=== PATIENT | female | born 1990 | race Caucasian/White ===

== ENCOUNTER 2019-10-10 07:20 | Emergency (ER) | payer BC ==
[~2019-10-10] VITALS: Ht 167.6 cm; Wt 134.0 kg
--- NOTE | 2019-10-10 08:10 | RAD ---
EXAM: AP, lateral and lumbosacral spot views of the lumbar spine DATE: 10/10/2019 7:46 AM INDICATION: LOWER BACK PAIN AFTER LIFTING YESTERDAY COMPARISON: No Prior FINDINGS: 5 nonrib-bearing lumbar-type vertebral bodies. Vertebral body heights are preserved. Straightening of the normal lumbar lordosis. No spondylolisthesis. Disc heights are grossly preserved. IMPRESSION: 1. Negative acute fracture or subluxation. Electronically signed by: Ronny Rojas MD (10/10/2019 8:07 AM) [facility]
[2019-10-10] MEDS ORDERED: KETOROLAC 30 MG/ML VIAL. IVP ONE (08:15)
[2019-10-10] MEDS ORDERED: ORPHENADRINE CITRATE 60 MG/2 ML VIAL. IM ONE (08:15)
--- NOTE | 2019-10-10 08:21 | PHYS DOC ---
Past Medical History Past Medical History: No Pertinent History Additional Past Medical Histor: back pain Past Surgical History: Other Additional Past Surgical Histo: knee surgery Smoking Status: Never Smoker Alcohol Use: Occasionally General Adult EDM: Chief Complaint: BACK PAIN OR INJURY HPI: HPI: Patient is a 28 year old female who presented with lower back pain since yesterday. 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 Patient has lower back problem in the past. She is scheduled to see her Chiropractor this coming Friday. Patient got up this morning, could not get out of her bed because of severe pain, worse with movement. Patient denied any bowel or bladder incontinence. No weakness or numbness in her lower extremities. Review of Systems: Review of Systems: Constitutional: Denies fever or chills. [] Eyes: Denies change in visual acuity. [] HENT: Denies nasal congestion or sore throat. [] Respiratory: Denies cough or shortness of breath. [] Cardiovascular: Denies chest pain or edema. [] GI: Denies abdominal pain, nausea, vomiting, bloody stools or diarrhea. [] : Denies dysuria. [] Musculoskeletal: Positive for lower back pain. Integument: Denies rash. [] Neurologic: Denies headache, focal weakness or sensory changes. [] Endocrine: Denies polyuria or polydipsia. [] Lymphatic: Denies swollen glands. [] Psychiatric: Denies depression or anxiety. [] Heart Score: Risk Factors: Risk Factors: DM, Current or recent (<one month) smoker, HTN, HLP, family history of CAD, obesity. Risk Scores: Score 0 - 3: 2.5% MACE over next 6 weeks - Discharge Home Score 4 - 6: 20.3% MACE over next 6 weeks - Admit for Clinical Observation Score 7 - 10: 72.7% MACE over next 6 weeks - Early Invasive Strategies Current Medications: Current Medications Medications (Trade) Dose Ordered Sig/Nayla Start Time Stop Time Status Last Admin Dose Admin Ketorolac Tromethamine (Toradol 30mg Vial) 30 mg 1X ONCE 10/10/19 08:15 10/10/19 08:16 DC 10/10/19 08:09 30 MG Orphenadrine Citrate (Norflex) 60 mg 1X ONCE 10/10/19 08:15 10/10/19 08:16 DC 10/10/19 08:10 60 MG Allergies: Allergies: Allergies Coded Allergies Type Severity Reaction Last Updated Verified No Known Drug Allergies 10/10/19 No Physical Exam: PE: Constitutional: Well developed, well nourished, no acute distress, non-toxic appearance. [] HENT: Normocephalic, atraumatic, bilateral external ears normal, oropharynx moist, no oral exudates, nose normal. [] Eyes: PERRLA, EOMI, conjunctiva normal, no discharge. [] Neck: Normal range of motion, no tenderness, supple, no stridor. [] Cardiovascular:Heart rate regular rhythm, no murmur [] Lungs & Thorax: Bilateral breath sounds clear to auscultation [] Abdomen: Bowel sounds normal, soft, no tenderness, no masses, no pulsatile masses. [] Skin: Warm, dry, no erythema, no rash. [] Back: There is tenderness to palpation in lumbar area at L2/L3 AREA, NO BONY STEP OFF, NO DEFORMITY NOTED, no CVA tenderness. [] Extremities: No tenderness, no cyanosis, no clubbing, ROM intact, no edema. [] Neurologic: Alert and oriented X 3, normal motor function, normal sensory function, no focal deficits noted. [] Psychologic: Affect normal, judgement normal, mood normal. [] Current Patient Data: Vital Signs: Vital Signs Date Time Temp Pulse Resp B/P (MAP) Pulse Ox O2 Delivery O2 Flow Rate FiO2 10/10/19 07:20 98.4 74 16 129/76 (93) 96 Room Air 98.4 EKG: EKG: [] Radiology/Procedures: Radiology/Procedures: [][facility] [address] [place] [address] IMAGING REPORT Signed PATIENT: ABDIRAHMAN BROWN ACCOUNT: [id number] : 1990 LOCATION: ER AGE: 28 SEX: F EXAM STATUS: PRE ER ORD. PHYSICIAN: RONIT TORREZ DO REASON: LOWER BACK PAIN AFTER LIFTING YESTERDAY PROCEDURE: LUMBAR SPINE 2-3V EXAM: AP, lateral and lumbosacral spot views of the lumbar spine DATE: 10/10/2019 7:46 AM INDICATION: LOWER BACK PAIN AFTER LIFTING YESTERDAY COMPARISON: No Prior FINDINGS: 5 nonrib-bearing lumbar-type vertebral bodies. Vertebral body heights are preserved. Straightening of the normal lumbar lordosis. No spondylolisthesis. Disc heights are grossly preserved. IMPRESSION: 1. Negative acute fracture or subluxation. Electronically signed by: Ronny Rojas MD (10/10/2019 8:07 AM) [id number] DICTATED and SIGNED BY: RONNY ROJAS MD DATE: 10/10/19 0807 Course & Med Decision Making: Course & Med Decision Making Pertinent Labs and Imaging studies reviewed. (See chart for details) [] Dragon Disclaimer: Dragon Disclaimer: This electronic medical record was generated, in whole or in part, using a voice recognition dictation system. Departure Departure Impression: Primary Impression: Back pain Disposition: HOME, SELF-CARE Condition: IMPROVED Patient Instructions: Back Pain, Adult Additional Instructions: Thank you for visiting our Emergency Department. We appreciate you trusting us with your care. If any additional problems come up don't hesitate to return to visit us. Please follow up with your primary care provider so they can plan additional care if needed and know about the problem that you had. If symptoms worsen come back to the Emergency Department. Any concerning symptoms that start such as chest pain, shortness of air, weakness or numbness on one side of the body, running high fevers or any other concerning symptoms return to the ER. Scripts Hydrocodone/Apap 5-325 (NORCO 5-325 TABLET) 1 Each Tablet 1 TAB PO TID, #12 TAB Prov: RONIT TORREZ DO 10/10/19 Cyclobenzaprine Hcl (CYCLOBENZAPRINE HCL) 10 Mg Tablet 1 TAB PO TID PRN for MUSCLE SPASMS, #20 TAB Prov: RONIT TORREZ DO 10/10/19 Justicifation of Admission Dx: Justifications for Admission: Justification of Admission Dx: N/A RONIT TORREZ DO Oct 10, 2019 08:21
[2019-10-10] MEDS ORDERED: MORPHINE SULFATE 4 MG/ML VIAL. IV ONE (09:15)
[2019-10-10] MEDS ORDERED: fentaNYL PF VIAL 100 MCG/2 ML VIAL IVP ONE (10:15)
[2019-10-10] MEDS ORDERED: diazePAM 5 MG TABLET PO ONE (10:15)
[2019-10-10] MEDS ORDERED: HYDR-3164 PO (10:54)
[2019-10-10] MEDS ORDERED: CYCL10TA2 PO (10:54)
[2019-10-10 11:16] VITALS: BP 129/89
== END 2019-10-10 11:31 | disposition home or self-care (01) ==
LOC: ER 07:20
DX: M54.9 Dorsalgia, unspecified (principal); Z98.890 Other specified postprocedural states
CPT/HCPCS: 72100; 96372; 96374; 96375; 99284; J1885; J2270; J2360; J3010